=== PATIENT | female | born 1990 | race Caucasian/White ===

== ENCOUNTER 2022-04-20 13:07 | Outpatient (CLI) | payer BC, SELFPAY ==
--- NOTE | 2022-04-20 13:00 | CRLHL7_ITS ---
For Patients: As a result of the Century Cures Act, medical imaging exams and procedure reports are released immediately into your electronic medical record. You may view this report before your referring provider. If you have questions, please contact your health care provider. INDICATION: Evaluate anatomy. COMPARISON: 02.06.22 TECHNIQUE: Real time pennington scale imaging of the fetus was performed as well as color Doppler analysis of the umbilical vessels. FINDINGS: Sonographic imaging demonstrates a single living intrauterine gestation. Fetus demonstrates a regular cardiac rate of 161 beats per minute. Fetus has a variable position. The placenta lies left posterior without evidence of placenta previa. The edge of the placenta abuts the internal cervical os with transvaginal imaging. Amniotic fluid volume appears normal. Single deepest vertical pocket: 4.7 cm. The cervix is closed and measures 4.4 cm in length. The composite ultrasound gestational age is calculated at 21 weeks 1 day with an estimated sonographic due date of 08/30/2022. The estimated weight is 410 grams which lies at the 81st %. The following biometric measurements were obtained: Biparietal diameter: 5.1 cm/21 weeks 3 days 80th% Head circumference: 18.7 cm/21 weeks 0 days 61st% Abdominal circumference: 16.7 cm/21 weeks 5 days 80th% Femur length: 3.4 cm/20 weeks 5 days 47th% The HC/AC ratio measures: 1.12 range (1.06-1.25) On anatomic survey, there is a normal appearance of the cerebral ventricles, cavum septi pellucidi, cisterna magna and cerebellum. The nose, lips, and facial profile appear normal. The cervical, thoracic and lumbar spine are well visualized and appear normal. There is a normal four-chamber heart view and the left and right ventricular outflow tracts appear normal. The diaphragm and stomach appear normal. The kidneys and bladder also appear normal. There is a normal three-vessel cord, however, cord insertion site is difficult to discern due to position. The four extremities appear normal. IMPRESSION: Sonographic gestational age 21 weeks 1 day and sonographic due date 08/30/2022. Good correlation with dates. Estimated weight 81st percentile. Abdominal circumference 80th percentile. Normal anatomic survey. Marginal previa with transvaginal imaging as the edge of the placenta abuts the internal cervical os. Incomplete visualization of the placental cord insertion due to position. Dictated by Bong Cardenas MD @ 04/20/2022 2:19:07 PM (Electronically Signed)
== END 2022-04-20 13:08 | disposition home or self-care (01) ==
LOC: US 13:09
PROVIDERS: Visit Provider Advanced Practice Midwife
DX: Z34.92 Encounter for supervision of normal pregnancy, unspecified, second trimester (principal); Z3A.21 21 weeks gestation of pregnancy
CPT/HCPCS: 76805; 76817

== ENCOUNTER 2022-06-15 13:00 | Outpatient (CLI) | payer BC, SELFPAY ==
--- NOTE | 2022-06-15 13:00 | CRLHL7_ITS ---
For Patients: As a result of the Century Cures Act, medical imaging exams and procedure reports are released immediately into your electronic medical record. You may view this report before your referring provider. If you have questions, please contact your health care provider. INDICATION: F/U ON PLACENTAL CORD INSERT AND LENGTH FROM INTERNAL CX OS TO PLACENTAL TIP. COMPARISON: 04/20/2022 TECHNIQUE: Real time pennington scale imaging of the fetus was performed. FINDINGS: Sonographic imaging demonstrates a single living intrauterine gestation. Fetus demonstrates a regular cardiac rate of 155 beats per minute. Fetus has a breech position. The placenta lies left anterior/posterior. The edge of the placenta is located 4.8 cm from the internal cervical os. Amniotic fluid volume appears normal and there is a single deepest vertical pocket: 5.0 cm. The estimated weight is 1548gm which lies at the 93rd %. On the prior OB ultrasound exam dated 04/20/2022 the estimated weight was at the 81st%. BPD 88th percentile. HC 96th percentile. AC greater than 97th percentile. FL 28th percentile. The HC/AC ratio measures 1.07 range (0.97-1.18). The cord insertion into the placenta is located 7 millimeters from the placental edge. IMPRESSION: Edge of the placenta is located 4.8 cm from the internal cervical os. No previa. Marginal cord insertion as the cord is located 7 millimeters from the placental edge. Sonographic gestational age 30 weeks 3 days and sonographic due date 08/21/2022. Sonographic age is 13 days ahead of the clinical age. Estimated weight 93rd percentile. Abdominal circumference greater than 97th percentile. Dictated by Bong Cardenas MD @ 06/15/2022 1:55:23 PM (Electronically Signed)
== END 2022-06-15 13:01 | disposition home or self-care (01) ==
LOC: US 13:01
PROVIDERS: Visit Provider Advanced Practice Midwife
DX: O44.23 Partial placenta previa NOS or without hemorrhage, third trimester (principal); Z3A.30 30 weeks gestation of pregnancy
CPT/HCPCS: 76816; 86592

== ENCOUNTER 2022-07-23 04:01 | Emergency (ER) | payer BC, SELFPAY ==
[2022-07-23] VITALS (8 sets, daily range): BP systolic 106–122; BP diastolic 71–90; PULSE 108–115; TEMP 36.6; O2SAT 96–98; BMI 27.8
--- NOTE | 2022-07-23 04:20 | ED.NAVMDI ---
HPI - Nausea/Vomiting/Diarrhea General Chief complaint: Nausea/Vomiting Stated complaint: 34wks , RSV, vomiting Time Seen by Provider: 07/23/22 04:12 History of Present Illness HPI Narrative: 32-year-old young woman presents to the emergency department with complaint of nausea and vomiting in some abdominal cramping. She is 34 weeks . No fever. Was recently diagnosed with RSV having had 3 days of symptoms of cough and congestion. Notes herself yesterday with screening to be negative for COVID and influenza and as noted positive for RSV. She has not had trouble with nausea/vomiting in . Does not have any antiemetics. Decreased urine out or least not the frequency she might expect. I was contacted by ball mill mixer from [facility] to assist in care in the emergency department due to RSV diagnosis. She has been having some crampiness of the abdomen and something more like contractions every 30 minutes or so. Related Data Home Medications Medication Instructions Recorded Confirmed metformin 500 mg tablet 500 mg PO QDAY 04/20/22 07/22/22 prenat.vits,nathan,[id number] 1 tab PO QDAY 04/20/22 07/22/22 sertraline 50 mg tablet 100 mg PO QDAY 04/20/22 07/22/22 Previous Rx's Medication Instructions Recorded metoclopramide HCl 10 mg tablet 10 mg PO Q6H PRN headache #20 tabs 05/22/22 (Reglan) Allergies Allergy/AdvReac Type Severity Reaction Status Date / Time No Known Allergies Allergy Unverified 07/22/22 11:22 Review of Systems Status of ROS: Reports: 6 or more systems reviewed and unremarkable except as noted in History and below [facility] Medical History Encounter for supervision of normal first atony of uterus with hemorrhage Spontaneous vaginal delivery Suspected severe acute respiratory syndrome coronavirus 2 (SARS-CoV-2) infection Type 3b perineal laceration during delivery Surgical History (Updated 04/11/22 @ 11:22 by Elsa Rice) History of left knee surgery Social History Smoking Status: Never smoker Exam Narrative: Exam Narrative: Pleasant. Seems a little uncomfortable. Breathing easily. Nasopharyngeal congestion without facial swelling or erythema. Oropharynx is not quite moist. Neck supple without lymphadenopathy. Lungs are clear. Cardiovascular is tachycardic. Extremities without notable edema. Well perfused and moving all extremities without difficulty Abdomen is appropriately gravid. Const: Vital Signs, click to edit/add: Vital Signs - 24 hr 07/23/22 04:09 07/23/22 04:30 07/23/22 05:00 Temperature 97.9 F Pulse Rate [Left P ulse Oximeter] 115 H 109 H Blood Pressure [Ri ght Upper Arm] 122/78 106/90 H 118/84 Pulse Oximetry 98 98 Oxygen Delivery Me thod Room Air Room Air 07/23/22 04:46 07/23/22 05:30 07/23/22 06:01 Temperature Pulse Rate [Left P ulse Oximeter] 108 H 108 H 109 H Blood Pressure [Ri ght Upper Arm] 113/87 112/77 Pulse Oximetry 97 98 96 Oxygen Delivery Me thod Room Air Room Air Room Air 07/23/22 06:30 07/23/22 06:49 Temperature Pulse Rate [Left P ulse Oximeter] 109 H Blood Pressure [Ri ght Upper Arm] 109/71 Pulse Oximetry 97 Oxygen Delivery Me thod Room Air Course Course Hospital Course: OB nursing present to monitor . Overall reassuring during time in the emergency department. Reevaluation(s) Reevaluation #1: Did receive IV fluids ultimately 2 L. Did check at 1 she thought she could benefit from another. Still a little nauseated after initial dose of Zofran was given Reglan. Overall improved Vital Signs Vital signs: Initial Vital Signs Temperature 97.9 F 07/23/22 04:09 Temperature Source Temporal Artery Scan 07/23/22 04:09 Pulse Rate 115 H 07/23/22 04:09 Blood Pressure 122/78 07/23/22 04:09 Blood Pressure Mean 92 07/23/22 04:09 Blood Pressure Position Supine 07/23/22 04:09 Pulse Oximetry 98 07/23/22 04:09 Oxygen Delivery Method 07/23/22 04:09 Vital Signs Temperature 97.9 F 07/23/22 04:09 Pulse Rate 115 H 07/23/22 04:09 Blood Pressure 122/78 07/23/22 04:09 Pulse Oximetry 98 07/23/22 04:09 Oxygen Delivery Method 07/23/22 04:09 Temperature 97.9 F 07/23/22 04:09 Pulse Rate 109 H 07/23/22 06:49 Blood Pressure 109/71 07/23/22 06:30 Pulse Oximetry 97 07/23/22 06:49 Oxygen Delivery Method 07/23/22 06:49 MDM - Nausea/Vomiting/Diarrhea MDM Narrative Medical decision making narrative: Unclear to me if this vomiting is related to or infectious etiology. Medical Records Attestation: I reviewed the patient's medical records. Lab Data Attestation: I reviewed the patient's lab results. Labs: Lab Results 07/23/22 Range/Units 04:45 Urine Color Yellow (Yellow) Urine Appearance Clear (Clear) Urine pH 8.5 (5.0-8.5) Ur Specific [place] 1.015 (1.000-1.030) Urine Protein Negative (Negative) Urine Glucose (UA) Negative (Negative) Urine Ketones Negative (Negative) Urine Blood Negative (Negative) Urine Nitrite Negative (Negative) Urine Bilirubin Negative (Negative) Urine Urobilinogen 0.2 (0.2-1.0) Ur Leukocyte Esterase Negative (Negative) Urine RBC 0-2 (0-2) Urine WBC 0-2 (0-5) Ur Squamous Epith Cells None (None-Few) Urine Bacteria None (None) Discharge Plan Discharge Clinical Impression: Uterine irritability, Vomiting, Dehydration Patient Disposition: Home w/ Parent or Adult Condition: Improved Additional Instructions: Focus on hydration. Consider a slow advance of diet over the next 36 hours. Diluted juices, soup broths to thicker soups and smoothies. [place]. Rice. Zofran from [facility] If you're up to it, there is a nice cafeteria downstairs where your might be able to find something like a breakfast sandwich :) Prescriptions: No Action metoclopramide HCl [Reglan] 10 mg tablet 10 mg PO Q6H PRN (Reason: headache) Qty: 20 2RF metformin 500 mg tablet 500 mg PO QDAY prenat.vits,nathan,[id number] Tablet 1 tab PO QDAY sertraline 50 mg tablet 100 mg PO QDAY Follow Up/Referrals: Provider,Not a Local [Referring] - Stand Alone Forms: [facility]
[2022-07-23] MEDS: 0.9 % SODIUM CHLORIDE 1000 ml 1,000 ML IV ×2 (04:30→05:35)
[2022-07-23] MEDS: ONDANSETRON 2 MG/ML inj 4 MG IVP (04:32)
--- NOTE | 2022-07-23 04:35 | ED.NURSE ---
OB RNs in for pt OB assessment.
[2022-07-23 05:02] LABS: Appearance Urine Clear (Clear); Bilirubin Urine Negative (Negative); Blood Urine Negative (Negative); Color Urine Yellow (Yellow); Glucose Urine Negative (Negative); Ketones Urine Negative (Negative); Leukocyte Esterase Urine Negative (Negative); Nitrite Urine Negative (Negative); Protein Urine Negative (Negative); Specific Gravity Urine 1.015 (1.000-1.030); Urobilinogen Urine 0.2 (0.2-1.0); pH Urine 8.5 (5.0-8.5)
[2022-07-23 05:08] LABS: RBC Urine 0-2 (0-2); WBC Urine 0-2 (0-5)
[2022-07-23] MEDS: METOCLOPRAMIDE HCL 10 MG in 0.9 % SODIUM CHLORIDE 100 ml 100 ML 306 MG IVPB (05:30)
== END 2022-07-23 08:02 | disposition home or self-care (01) ==
PROVIDERS: Emergency Provider Family Medicine; PCP Family Medicine
DX: R11.10 Vomiting, unspecified (principal); E86.0 Dehydration; Z33.1 Pregnant state, incidental
CPT/HCPCS: 81001; 96361; 96365; 96375; 99283; J2405; J2765; J7030

== ENCOUNTER 2022-07-27 13:58 | Outpatient (CLI) | payer BC, SELFPAY ==
--- NOTE | 2022-07-27 14:00 | CRLHL7_ITS ---
For Patients: As a result of the Century Cures Act, medical imaging exams and procedure reports are released immediately into your electronic medical record. You may view this report before your referring provider. If you have questions, please contact your health care provider. INDICATION: Third trimester scan, evaluate growth. COMPARISON: 06/15/2022 TECHNIQUE: Real time pennington scale imaging of the fetus was performed. FINDINGS: Sonographic imaging demonstrates a single living intrauterine gestation. Fetus demonstrates a regular cardiac rate of 126 beats per minute. Fetus has a breech position. The placenta lies left fundal posterior. Amniotic fluid volume appears normal and there is a single deepest vertical pocket: 6 point a cm. The estimated weight is 2930gm which lies at the 91st %. On the prior OB ultrasound exam dated 06/15/2022 the estimated weight was at the 93rd%. BPD, HC and AC are greater than 97th percentile. FL 11th percentile. The HC/AC ratio measures 1.05 range (0.92-1.05). IMPRESSION: Sonographic gestational age 37 weeks and sonographic due date 08/17/2022. Sonographic age 17 days ahead of the clinical age. Estimated weight 91st percentile. Abdominal circumference, head circumference and biparietal diameter greater than 97th percentile. Dictated by Bong Cardenas MD @ 07/29/2022 12:37:59 PM (Electronically Signed)
== END 2022-07-27 13:59 | disposition home or self-care (01) ==
LOC: US 13:59
PROVIDERS: PCP Family Medicine; Visit Provider Advanced Practice Midwife
DX: Z34.93 Encounter for supervision of normal pregnancy, unspecified, third trimester (principal); Z3A.37 37 weeks gestation of pregnancy
CPT/HCPCS: 76816

== ENCOUNTER 2022-08-15 07:10 | Outpatient (CLI) | payer BC, SELFPAY ==
[2022-08-15] VITALS (18 sets, daily range): BP systolic 111–117; BP diastolic 66; PULSE 75–113; RESP 16; TEMP 36.8; O2SAT 97–100
[2022-08-15 08:06] LABS: SARS PCR* Negative SARS-CoV-2 (Negative)
[2022-08-15] MEDS: TERBUTALINE 1 MG/ML INJ 0.25 MG SUBCUT (08:22)
--- NOTE | 2022-08-15 09:25 | PM.PROC ---
Procedure Note Date Seen: 08/15/22 Date of procedure: 08/15/22 Will [facility] bill your pro fee for this procedure?: Yes Pre-op diagnosis: Breech presentation Post-op diagnosis: other (Vertex presentation) Procedure: External cephalic version Procedure Description: PREOPERATIVE DIAGNOSIS: 1. Intrauterine at 37 2/7 weeks gestation. 2. Breech presentation. POSTOPERATIVE DIAGNOSIS: 1. Intrauterine at 37 2/7 weeks gestation. 2. Vertex presentation. PROCEDURE: 1. Nonstress test. 2. Limited OB ultrasound. 3. External cephalic version. SURGEON: Jay. COMMUNICATIONS PROGRAMMER: . ANESTHESIA: None. COMPLICATIONS: None. FINDINGS: Nonstress test: heart rate baseline 135 beats per minute, good variability, 15 x 15 accelerations present, no decelerations, category 1. Limited OB ultrasound: Single, living, intrauterine gestation in a complete breech presentation with the back along the maternal right, grossly normal amniotic fluid volume. PROCEDURE NOTE: A nonstress test was performed, which was reactive and reassuring. A limited OB ultrasound was performed at the bedside to determine position. Findings noted above. Informed consent was obtained for external cephalic version. Terbutaline 0.25 mg was administered to the patient subcutaneously. External cephalic version was attempted. I applied upward pressure to the breech, Dr. Chatterjee applied pressure to the vertex, and we attempted to gently coax the fetus in a forward roll in a counter-clockwise direction. This attempt was successful. heart tones were noted to be normal after the attempt. The patient tolerated the procedure well. monitoring for 1 hour after the procedure was continued to be reassuring. Anesthesia: other (Nitrous oxide) Surgeon: Joaquina Thompson MD Operation Research Analyst: Rukhsana Chatterjee Condition: stable Disposition: same day
--- NOTE | 2022-08-15 18:21 | PC.OBNST ---
NST Note NST Note Start: 08/15/22 18:18 Freq: ONCE Status: Active Protocol: Document 08/15/22 10:00 Aleena (Rec: 08/15/22 18:20 JRAleena [id number]) NST Note 2 Para (# of births) 1 EDC 09/03/22 Gestational Age In Weeks & Days 37 Weeks & 2 Days Patient Presented with Complaint(s) of Other Other Complaints ECV Reactive Yes Appropriate for Gestational Age Yes RN Abhinav Flowers RN Date 08/15/22 Reactive Yes Appropriate for Gestational Age Yes OWEN Vazquez RNC Date 08/15/22 OB NST charge Yes Complete NST Note via Write Note Yes The provider's electronic signature indicates the NST is reactive/appropriate for gestational age. *Note to provider: If an addendum is required, open the patient's chart and click on the note under the Nurse/Allied Health tab.
== END 2022-08-15 10:20 | disposition home or self-care (01) ==
LOC: OB 10:06 → OB CLI 08-16 10:51 → OB 08-16 10:51
PROVIDERS: PCP Family Medicine; Visit Provider Obstetrics & Gynecology
DX: Z34.93 Encounter for supervision of normal pregnancy, unspecified, third trimester (principal); Z3A.37 37 weeks gestation of pregnancy
CPT/HCPCS: 59025; 59412; 76815; 87081; 87635; 87653; 99211; J3105

== ENCOUNTER 2022-08-30 06:23 | Inpatient (IN) | payer BC, SELFPAY ==
[2022-08-30] VITALS (20 sets, daily range): BP systolic 119–137; BP diastolic 68–86; PULSE 82–101; RESP 16–18; TEMP 36.6–37; O2SAT 96–97; BMI 28.8
[2022-08-30 06:12] LABS: SARS PCR* Negative SARS-CoV-2 (Negative)
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
[2022-08-30 06:20] LABS: Amnisure Rom* POSITIVE
--- NOTE | 2022-08-30 07:32 | PM.OBPNL ---
Subjective Time Seen by Provider: 07:34 Date Seen: 08/30/22 Narrative: Caridad is coping well with labor pain/contractions. She is currently being supported by [ ]. Understands the current plan of care. ?Reports concerns regarding: [ ]. Questions answered to her satisfaction. ?She would like to continue with [ ] for comfort and pain management.?? VSS, afebrileGeneral Appearance:?[Calm, cooperative]. No acute distress. ? Psychiatric Exam: Alert and oriented, appropriate affect Abdomen: Gravid Ctx: ?Q [] min apart.?[Mild] ?[Moderate] ?[Strong] FHTs: ?Baseline: [] ? ?Variability: [] ? Accels: [] ? ?Decels: ?[] SVE: [] Membranes: [Intact] ?[SROM] ?[AROM] X [] hours Assessment:??[Age]yo G[ ] P[ ] at [ ] gestation?? Patient is coping [] with challenges of labor.?? Labor type: [Induced/Spontaneous], [Early/Active] labor? Category [1, 2, 3] FHR pattern.?? complicated by: [] Labor complicated by: [ ]? Plan:?? Continue with routine intrapartum cares as ordered.?? Patient encouraged to [ ] to promote physiologic labor and .?? [LABOR ANALGESIA] or nonpharmacologic comfort measures per patient preference. Patient [plans/does not plan] for waterbirth. Anticipate progress to [active labor and] . ? Objective Vital Signs: Last Vital Signs Temp 98.6 F 08/30/22 05:34 Pulse 89 08/30/22 05:34 Resp 16 08/30/22 05:34 BP 132/86 08/30/22 05:34 Pulse Ox 97 08/30/22 05:33 Contractions Contraction intensity: Moderate Assessment Heart Rate Baseline: 135 Monitor Accelerations: Present Monitor Decelerations: None
[2022-08-30] MEDS: OXYTOCIN 10 UNIT/ML INJ IM (09:22)
[2022-08-30] MEDS: LIDOCAINE 1% MDV 20 ML INJECTION (09:45)
--- NOTE | 2022-08-30 11:28 | PM.OBPRCVD ---
Procedure Delivery date: 08/30/22 Procedure Done: Global Procedure Details: Patient is a 32 year-old G2 now ?P2 admitted on 08/30/22 at 39.3 Weeks gestation for SROM, clear fluid/labor. ?Cervical exam was deferred on admission.with membranes ruptured in vertex presentation, which was confirmed by bedside u/s.? SROM? occurred at 0315 with clear stained fluid. Labor Analgesia:? nitrous briefly just prior to delivery Pitocin:? ? PP only for AMTSL Labor onset:? 0300 Complete: unknown Pushing:? 0914 heart tones during second stage were: WNL Called to pt room - Caridad becoming increasing uncomfortable and feeling some mild pressure. CNM continued at bedside as ctx become more intense. She requested nitrous, and shortly after starting it began involuntarily pushing. Small crown noted shortly after, CNM providing perineal supprt to decrease risk of tearing. Baby delivered shortly after. At 0919 a viable? female delivered in vertex OA presentation over intact perineum via spontaneous vaginal?delivery in the tub. ? was placed on maternal abdomen. Moderate gush of blood noted at about the 5 min gretel, but appeared to slow, so pt remained in the tub. Bleeding noted to be increasing and difficult to monitor in the tub, so decision was made to move to the bed. Per pt preference, the cord was not clamped as it was still pulsing. ?Assisted to bed, where bleeding was WNL. Cord was clamped and cut after it stopped pulsing.?? Infant weight pending. ? 7 at 1 minute and 9 at 5 minutes. ?Shoulder dystocia: no. ?Nuchal cord: yes, noted as the infant was being brought up from the tub. Delivered through and reduced prior to being brought all the way to the surface. Placenta delivered spontaneously and complete at 0940 with a 3 vessel cord. Mother and infant were stable after?delivery. Lacerations:? 2nd degree, repaired with 3-0 vicryl.? Blood loss: 350 mL. Blood loss measurement type: QBL:100, ? EBL: 250 in the tub Sponge and needles counts are correct. Events: Covid Infection in Intrapartal Events: None Delivery monitor: external FHT (by doppler) Route of delivery: Laceration description: Perineal - 2nd Degree Delivery repair: Vicryl Estimated blood loss (mL): 350 (QBL from tub: 250, EBL 100) Anesthesia type: Nitrous briefly at the end Disposition: floor Infant Infant Gender: Female presentation: vertex Placental Delivery Description: Spontaneous Cord Description: 3 Vessels and Nuchal Cord (delivered through, reduced after delivery) cord description comment: Marginal, almost velamentous.Large amount of calcifications. OB Vag Delivery Procedures Additional Procedures ECV: No Cook Catheter Insertion: No NST: No D&C: No Laceration Repair: Yes Tubal Ligation : No Other: No
[2022-08-30] MEDS: IBUPROFEN 600 MG TABLET PO (19:34)
[2022-08-31 00:51] VITALS: BP 117/80; PULSE 69; RESP 16; TEMP 37; O2SAT 96
[2022-08-31 05:29] VITALS: BP 118/83; PULSE 82; RESP 16; O2SAT 95
--- NOTE | 2022-08-31 07:40 | PM.OBDSVD1 ---
DS: Providers Provider Date Seen: 08/31/22 Date of admission: 08/30/22 06:23 Primary care physician: Etienne Villegas MD Admitting Clinician: Mei Prado CNM Attending Physician on discharge: Mei Prado CNM Date of Discharge: 08/31/22 DS: Diagnosis Discharge Diagnosis (1) care following vaginal delivery: Status: Acute (2) Lactating mother: Status: Acute (3) Mixed anxiety depressive disorder: Status: Acute Exam Narrative: Exam Narrative: GENERAL APPEARANCE:? normal affect, alert, no distress? MOOD:? appropriate? CHEST:? clear to auscultation and percussion? HEART:? regular rate and rhythm? ABDOMEN:? soft, non-tender the uterine fundus is 2 cm Below Umbilicus, Midline and is appropriate for the stage of recovery.? PERINEUM:? no edema of the perineum, there is a 2nd degree that is healing well.? EXTREMITIES:? normal and no edema? Patient has no complaints? No active bleeding?? Doing well? She is requesting discharge home.? Const: Vital Signs, click to edit/add: Vital Signs - 24 hr 08/30/22 09:32 08/30/22 09:47 08/30/22 10:02 Temperature Pulse Rate 96 82 88 Pulse Rate [Pulse Oximeter] Respiratory Rate Blood Pressure 129/68 124/69 126/75 Blood Pressure [Ri ght Arm] Pulse Oximetry Oxygen Delivery Me thod 08/30/22 10:17 08/30/22 10:32 08/30/22 10:47 Temperature Pulse Rate 101 H 94 86 Pulse Rate [Pulse Oximeter] Respiratory Rate Blood Pressure 125/72 121/78 127/74 Blood Pressure [Ri ght Arm] Pulse Oximetry Oxygen Delivery Me thod 08/30/22 11:22 08/30/22 11:33 08/30/22 09:45 Temperature 98.5 F Pulse Rate 91 88 Pulse Rate [Pulse Oximeter] 82 Respiratory Rate 18 Blood Pressure 134/76 137/68 Blood Pressure [Ri ght Arm] 124/69 Pulse Oximetry Oxygen Delivery Me thod 08/30/22 10:00 08/30/22 10:15 08/30/22 10:30 Temperature Pulse Rate Pulse Rate [Pulse Oximeter] 88 101 H 94 Respiratory Rate 16 18 18 Blood Pressure Blood Pressure [Ri ght Arm] 126/75 125/72 121/78 Pulse Oximetry Oxygen Delivery Me thod 08/30/22 10:55 08/30/22 11:00 08/30/22 11:15 Temperature Pulse Rate Pulse Rate [Pulse Oximeter] 86 96 91 Respiratory Rate 16 18 18 Blood Pressure Blood Pressure [Ri ght Arm] 127/74 129/68 134/76 Pulse Oximetry 97 Oxygen Delivery Me thod 08/30/22 11:30 08/30/22 16:00 08/30/22 19:39 Temperature 98.0 F 97.9 F Pulse Rate Pulse Rate [Pulse Oximeter] 88 85 89 Respiratory Rate 18 16 16 Blood Pressure Blood Pressure [Ri ght Arm] 137/68 119/77 127/81 Pulse Oximetry 97 96 Oxygen Delivery Me thod Room Air Room Air 08/31/22 00:51 08/31/22 05:29 Temperature 98.6 F Pulse Rate Pulse Rate [Pulse Oximeter] 69 82 Respiratory Rate 16 16 Blood Pressure Blood Pressure [Ri ght Arm] 117/80 118/83 Pulse Oximetry 96 95 Oxygen Delivery Me thod Room Air Room Air Documenting provider has reviewed patient's vital signs: yes OB - DS: Summary Hospital Course Hospital Course: Patient is a 32year old, G 2 now P 2? admitted on 08/30/22 at 39 Weeks, 3 Days gestation for SROM .? She had an uncomplicated vaginal delivery.? She delivered a viable female .? She is breast feeding and reports things are well.? the patient has done well.? Her pain is well controlled with current medications.? She has no new complaints.? Vitals have been stable. She has remained afebrile. She is voiding without difficulty. She is passing gas and has not had a bowel movement. She is ambulating and denies any dizziness. She is planning partner vasectomy and condoms or abstinence until vasectomy success confirmed for control.? Peripartum Data Infant delivery method: Vaginal Laceration description: Perineal - 2nd Degree Episiotomy description: None complications: none Gender: Female Infant Discharge Plan: Home Status at Discharge Functional status at discharge: independent ambulation Overall status at discharge: patient is progressing back to baseline Time Spent with Patient Time attestation: Total time spent providing and/or coordinating discharge services: Discharge Plan Discharge Disposition: Home, Self-Care Date of Admission: 08/30/22 06:23 Attending Provider on Discharge: Mary Lou Solis Primary Care Provider: Etienne Villegas Condition: Stable Anticipated Discharge Date/Time: 08/31/22 11:00 Discharge Medications: New docusate sodium 100 mg Capsule 100 mg PO DAILY Qty: 90 0RF Rx Instructions: Take 1-2 tablets daily as needed for constipation. ibuprofen 600 mg Tablet 600 mg PO Q6H PRNQty: 30 0RF Continued metoclopramide HCl [Reglan] 10 mg tablet 10 mg PO Q6H PRN (Reason: headache) Qty: 20 2RF metformin 500 mg tablet 500 mg PO QDAY prenat.vits,nathan,[id number] Tablet 1 tab PO QDAY sertraline 50 mg tablet 100 mg PO QDAY Discharge Orders: Discharge Order (Routine); Ordered 08/31/22 Ordered By: Mary Lou Solis Additional Instructions: Discharge Education? ? Discharge instructions were reviewed with the patient including signs and symptoms of infection and home going medications.? Lifting Restrictions: 20 pounds for 6?weeks? ?? Do not drive while taking narcotic pain medications. No high-impact or core exercises for 6 weeks.?? Nothing vaginally for 6 weeks: no tampons or intercourse? Off Work or School for 6 weeks.? ?? Symptoms to report to doctor:? -Bleeding that saturates more than one pad per hour? -Passing clots larger than the size of a golf ball? -Pain not relieved by prescribed medication? -Fever above 100.4 degrees Fahrenheit? -A foul vaginal odor? -Difficulty in emotions, mood and functions? -Thoughts of hurting yourself and/or ? -Painful, reddened area in your breast? -Any drainage, redness or tenderness in your IV/epidural site? -Severe headache that doesn't improve after taking medications? -Changes in vision, including temporary loss of vision, blurred vision, and/or light sensitivity? -Upper abdominal pain (usually under ribs on the right side)? -Decrease in urination or painful, frequent urinating? -Chest pain? -Shortness of breath? -Tenderness or pain with redness and/swelling in the calf(s) of your leg? ?? Follow Up in clinic in 2 and 6 weeks.? ?? consultation services are available to all mothers and babies for the first year after delivery.? To make an appointment, please call [phone].? Activity Level: Activity as Tolerated Discharge Diet: Regular Follow Up Appointments: Etienne Villegas MD [Primary Care Provider] - [facility] [Provider Group] Forms: MyHealth Info Instructions
[2022-08-31 10:30] VITALS: BP 119/82; PULSE 80; RESP 16; TEMP 36.9
[2022-08-31 12:45] VITALS: BP 115/77
== END 2022-08-31 15:45 | disposition home or self-care (01) | DRG 560 ==
LOC: OB OUT 06:24 → OB 06:24
PROVIDERS: Admitting Provider Advanced Practice Midwife; PCP Family Medicine; Visit Provider Advanced Practice Midwife
DX: O99.284 Endocrine, nutritional and metabolic diseases complicating childbirth (principal); E28.2 Polycystic ovarian syndrome; O70.1 Second degree perineal laceration during delivery; O99.344 Other mental disorders complicating childbirth; F41.8 Other specified anxiety disorders; F50.00 Anorexia nervosa, unspecified; Z62.810 Personal history of physical and sexual abuse in childhood; Z86.16 Personal history of COVID-19; Z3A.39 39 weeks gestation of pregnancy; Z37.0 Single live birth
CPT/HCPCS: 84112; 85025; 86850; 86900; 86901; 87635; A9270; J2590

== ENCOUNTER 2022-12-03 09:56 | Outpatient (CLI) | payer BC, SELFPAY | END 2022-12-03 09:57 | disposition home or self-care (01) | LOC: NFLDREF 12-04 15:12 | PROVIDERS: PCP Family Medicine; Referring Provider Family Medicine; Visit Provider Family Medicine | DX: E78.5 Hyperlipidemia, unspecified (principal); E28.2 Polycystic ovarian syndrome | CPT/HCPCS: 80053; 80061 ==

== ENCOUNTER 2023-05-10 11:00 | Outpatient (RCR) | payer BC, SELFPAY | END 2023-08-06 13:10 | disposition home or self-care (01) | PROVIDERS: PCP Family Medicine; Visit Provider Advanced Practice Midwife | DX: N81.4 Uterovaginal prolapse, unspecified (principal); G43.909 Migraine, unspecified, not intractable, without status migrainosus; M43.6 Torticollis; R53.1 Weakness; R29.3 Abnormal posture; Z51.89 Encounter for other specified aftercare | CPT/HCPCS: 97110; 97112; 97140; 97162; 97535 ==

== ENCOUNTER 2023-05-29 15:15 | Outpatient (RCR) | payer BC, SELFPAY | END 2023-09-26 23:59 | disposition home or self-care (01) | PROVIDERS: PCP Family Medicine; Visit Provider Advanced Practice Midwife | DX: G43.909 Migraine, unspecified, not intractable, without status migrainosus (principal); R29.3 Abnormal posture; R53.1 Weakness; M43.6 Torticollis; Z51.89 Encounter for other specified aftercare | CPT/HCPCS: 97110; 97140; 97162 ==

== ENCOUNTER 2024-04-23 07:46 | Outpatient (CLI) | payer BC, SELFPAY | END 2024-04-23 07:47 | disposition home or self-care (01) | LOC: NFLDREF 04-28 07:20 | PROVIDERS: PCP Family Medicine; Referring Provider Family Medicine; Visit Provider Family Medicine | DX: E78.5 Hyperlipidemia, unspecified (principal); E28.2 Polycystic ovarian syndrome | CPT/HCPCS: 80053; 80061 ==

== ENCOUNTER 2024-08-25 14:26 | Outpatient (CLI) | payer BC, SELFPAY | END 2024-08-25 14:27 | disposition home or self-care (01) | LOC: NFLDREF 14:33 | PROVIDERS: PCP Family Medicine; Visit Provider Family Medicine | DX: R47.01 Aphasia (principal) | CPT/HCPCS: 80053 ==

== ENCOUNTER 2024-09-24 07:58 | Outpatient (CLI) | payer BC, SELFPAY ==
--- NOTE | 2024-09-24 08:15 | CRLHL7_ITS ---
For Patients: As a result of the Century Cures Act, medical imaging exams and procedure reports are released immediately into your electronic medical record. You may view this report before your referring provider. If you have questions, please contact your health care provider. Indication: Aphasia. Technique: Multiplanar, multisequence MRI of the brain was performed without intravenous contrast. Comparison: None relevant available. Findings: The corpus callosum, pituitary gland clivus appear intact. Craniocervical junction appears preserved. There is no restricted diffusion. No intracranial hemorrhage. The ventricles are proportionate to the cerebral sulci. The 4th ventricle appears midline. The basal cisterns appear patent. No abnormal extra-axial fluid collection identified. Few scattered nonspecific T2 FLAIR hyperintense white matter foci. There is no intracranial mass, abnormal mass-effect or midline shift identified. Major intracranial vascular flow voids appear grossly intact. Both globes are preserved. Impression: 1. No acute intracranial process. 2. Few scattered nonspecific T2 FLAIR hyperintense white matter foci. Differential considerations include sequela of migraine headaches or other nonspecific gliosis. Dictated by Eric Henderson MD @ 09/24/2024 10:14:50 AM (Electronically Signed)
== END 2024-09-24 07:59 | disposition home or self-care (01) ==
PROVIDERS: PCP Family Medicine; Visit Provider Family Medicine
DX: R47.01 Aphasia (principal)
CPT/HCPCS: 70551

== ENCOUNTER 2024-11-13 10:03 | Outpatient (CLI) | payer BC, SELFPAY ==
--- NOTE | 2024-11-13 10:34 | PC.NURSE ---
20G Iv placed in right AC. Bubble study done per deburr technician. Iv removed intact.
== END 2024-11-13 10:04 | disposition home or self-care (01) ==
LOC: RAD 10:05
PROVIDERS: PCP Family Medicine; Visit Provider Psychiatry & Neurology Neurology
DX: R47.01 Aphasia (principal); I07.1 Rheumatic tricuspid insufficiency; R41.82 Altered mental status, unspecified; G43.909 Migraine, unspecified, not intractable, without status migrainosus
CPT/HCPCS: 93306; 96374

== ENCOUNTER 2025-04-20 09:12 | Outpatient (CLI) | payer BC, SELFPAY | END 2025-04-20 09:13 | disposition home or self-care (01) | PROVIDERS: PCP Family Medicine; Visit Provider Family Medicine | DX: R21 Rash and other nonspecific skin eruption (principal) | CPT/HCPCS: 83036; 83516; 85651; 86038; 86039; 86060; 86140; 87252 ==

== ENCOUNTER 2025-07-07 08:39 | Outpatient (CLI) | payer BC, SELFPAY | END 2025-07-07 08:40 | disposition home or self-care (01) | LOC: NFLDREF 07-10 16:07 | PROVIDERS: PCP Family Medicine; Referring Provider Family Medicine; Visit Provider Family Medicine | DX: E28.2 Polycystic ovarian syndrome (principal); E78.5 Hyperlipidemia, unspecified | CPT/HCPCS: 80053; 80061 ==